=== PATIENT | male | born 1995 | race African-American/Black ===

== ENCOUNTER 2017-08-24 10:59 | Emergency (ER) | payer OTHER ==
[~2017-08-24] VITALS: Ht 185.4 cm; Wt 86.7 kg
[2017-08-24] MEDS ORDERED: MOTRIN800 MG PO (14:38)
[2017-08-24 15:01] VITALS: BP 131/77
== END 2017-08-24 15:02 ==
LOC: EME 10:59
DX: S93.401A Sprain of unspecified ligament of right ankle, initial encounter (principal); W10.9XXA Fall (on) (from) unspecified stairs and steps, initial encounter
CPT/HCPCS: 73610; 73721; 99281; 99284